=== PATIENT | male | born 1965 | race Caucasian/White ===

== ENCOUNTER 2016-07-09 21:45 | Emergency (ER) | payer SELFPAY ==
[2016-07-09] MEDS ORDERED: NORMAL SALINE 1000 ML 1,000 ML IV ONE (22:32)
--- NOTE | 2016-07-09 22:32 | ER Document Report ---
ED General - General Mode of Arrival: Ambulatory Information source: Patient TRAVEL OUTSIDE OF THE [place] IN LAST 30 DAYS: No - HPI Patient complains to provider of: Hypoglycemia Onset: Just prior to arrival Associated symptoms: Other - see HPI <ALEXX MCGRAW - Last Filed: 07/09/16 23:00> <ISMAELJG MATIAS - Last Filed: 07/10/16 06:56> - General Chief Complaint: ETOH Abuse Stated Complaint: LOW BLOOD SUGAR,ALCOHOL INTOXICATION,AMS Notes: 50 year old male with history of cardiac disease and diabetes presents to the ED via EMS after being found unresponsive by a friend earlier this evening. EMS reports the patient is hypoglycemic, smells of ETOH, and was altered when they arrived. Patient's friend states that the patient has been abusing Percocet the last few days and heroin 3 days ago. Patient was 1 month ago and the friend explains that he has been drinking excessively since this. EMS reports that the patient's last meal was last night. (ALEXX MCGRAW) Past Medical History - General Information source: Patient - Social History Smoking Status: Unknown if Ever Smoked Frequency of alcohol use: Heavy Drug Abuse: Heroin Family History: Reviewed & Not Pertinent <ALEXX MCGRAW - Last Filed: 07/09/16 23:00> Review of Systems - Review of Systems Constitutional: No symptoms reported EENT: No symptoms reported Cardiovascular: See HPI, Other - hypoglycemia Respiratory: No symptoms reported Gastrointestinal: No symptoms reported Genitourinary: No symptoms reported Male Genitourinary: No symptoms reported Musculoskeletal: No symptoms reported Skin: No symptoms reported Hematologic/Lymphatic: No symptoms reported Neurological/Psychological: See HPI, Lost consciousness -: Yes All other systems reviewed and negative <ALEXX MCGRAW - Last Filed: 07/09/16 23:00> Physical Exam - General General appearance: Other - uncooperative and intoxicated - HEENT Head: Normocephalic, Atraumatic Eyes: Normal Extraocular movements intact: Yes Pupils: PERRL - Respiratory Respiratory status: No respiratory distress Breath sounds: Normal - Cardiovascular Rhythm: Regular Heart sounds: Normal auscultation - Abdominal Inspection: Normal - Back Back: Normal - Extremities General upper extremity: Normal inspection, Normal ROM General lower extremity: Normal inspection, Normal ROM - Neurological Neuro grossly intact: Yes - Psychological Associated symptoms: Uncooperative - Skin Skin Temperature: Warm Skin Moisture: Dry Skin Color: Normal <MCGRAWALEXX PEÑA - Last Filed: 07/09/16 23:00> Course <ALEXX MCGRAW - Last Filed: 07/09/16 23:00> - Laboratory Result Diagrams: 07/09/16 23:25 07/09/16 23:25 <JG GUEVARA - Last Filed: 07/10/16 06:56> - Re-evaluation Re-evalutation: 07/09 Patient is a 50-year-old male who comes in intoxicated and hypoglycemic as he has been taking Xanax and drinking alcohol but not eating anything all day. Patient states that he had a recent of his grandfather and his left him apparently a month ago. Patient states that he does not want hurt himself or anyone also. He would like to go home. Promises that he will eat. Family is present who stated that they'll monitor the patient and watch him eat something. They do not feel that he is a danger to himself or anyone also this time. 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 Stable at time of discharge into the care of family. Please note, the patient needed to be restrained upon presentation as he was intoxicated, stumbling, and attempting to leave and walk. Recent orders were put in. Discontinued at time of discharge. (JG GUEVARA) - Vital Signs Vital signs: Temp Pulse Resp BP Pulse Ox 97.8 F 89 15 130/83 H 98 07/09/16 23:55 07/09/16 23:55 07/09/16 23:55 07/09/16 23:55 07/09/16 23:55 - Laboratory Laboratory results interpreted by me: 07/09/16 07/09/16 23:25 23:25 MCV 99 H MCH 35.5 H Plt Count 123 L AST 307 H ALT 257 H Salicylates < 1.0 L Acetaminophen < 10 L Serum Alcohol 344 H* Discharge <ALEXX MCGRAW - Last Filed: 07/09/16 23:00> <JG GUEVARA - Last Filed: 07/10/16 06:56> - Discharge Clinical Impression: Elevated LFTs, Hypoglycemia Alcohol intoxication Qualifiers: Complication of substance-induced condition: uncomplicated Qualified Code(s): F10.120 - Alcohol abuse with intoxication, uncomplicated Condition: Stable Disposition: HOME, SELF-CARE Instructions: Acute Alcohol Intoxication ([facility]), Hypoglycemia ([facility]) Additional Instructions: Please call your doctor in the morning. Please eat food and stop drinking alcohol excessively. Forms: Elevated Blood Pressure Scribe Attestation: 07/10/16 06:56 I personally performed the services described in the documentation, reviewed and edited the documentation which was dictated to the scribe in my presence, and it accurately records my words and actions. (JG GUEVARA) Scribe Documentation - Scribe Written by Nesha:: Nesha Duckworth, 07/09/2016 2330 acting as scribe for :: Ismael <ALEXX MCGRAW - Last Filed: 07/09/16 23:00>
[2016-07-09 23:46] LABS: ABSOLUTE MONOCYTES (AUTO) 0.8 10^3/uL (0.1-1.4); ABSOLUTE NEUT (AUTO) 4.3 10^3/uL (1.7-8.2); BASOPHILS % (AUTO) 0.4 % (0-2); EOSINOPHILS % (AUTO) 0.4 % (0-6); HEMATOCRIT 46.4 % (37.9-51.0); HEMOGLOBIN 16.6 g/dL (13.5-17.0); HGB HCT DIFFERENCE 3.4; LYMPHOCYTES % (AUTO) 27.7 % (13-45); MEAN CORPUSCULAR HEMOGLOBIN 35.5 pg (27.0-33.4); MEAN CORPUSCULAR HGB CONC 35.8 g/dL (32.0-36.0); MEAN CORPUSCULAR VOLUME 99 fl (80-97); MONOCYTES % (AUTO) 10.8 % (3-13); RED BLOOD COUNT 4.68 10^6/uL (4.35-5.55); RED CELL DISTRIBUTION WIDTH 12.9 % (11.5-14.0); SEGMENTED NEUTROPHILS % (AUTO) 60.7 % (42-78); WHITE BLOOD COUNT 7.1 10^3/uL (4.0-10.5)
[2016-07-09 23:52] LABS: ALANINE AMINOTRANSFERASE 257 U/L (21-72); ALBUMIN 4.4 g/dL (3.5-5.0); ALKALINE PHOSPHATASE 90 U/L (38-126); ANION GAP 14 (5-19); ASPARTATE AMINO TRANSFERASE 307 U/L (17-59); BILIRUBIN,DIRECT 0.2 mg/dL (0.0-0.4); BILIRUBIN,TOTAL 0.8 mg/dL (0.2-1.3); BLOOD UREA NITROGEN 7 mg/dL (7-20); CALCIUM 9.3 mg/dL (8.4-10.2); CARBON DIOXIDE 28 mmol/L (22-30); CHLORIDE 100 mmol/L (98-107); CREATININE RESULT 0.59 mg/dL (0.52-1.25); GLUCOSE 105 mg/dL (75-110); POTASSIUM 3.6 mmol/L (3.6-5.0); SODIUM 142.2 mmol/L (137-145); TOTAL PROTEIN 7.5 g/dL (6.3-8.2)
[2016-07-10 00:04] LABS: ALCOHOL 344 mg/dL (NONE DETECTED)
--- NOTE | 2016-07-10 00:15 | EKG REPORT ---
SEVERITY:- BORDERLINE ECG - SINUS RHYTHM LOW VOLTAGE IN FRONTAL LEADS BORDERLINE PROLONGED QT INTERVAL : Confirmed by: Bethanie Peters 10-Jul-2016 00:15:00
[2016-07-10 00:33] VITALS: BP 130/83
== END 2016-07-10 | disposition home or self-care (01) ==
LOC: ER 21:45
DX: F10.120 Alcohol abuse with intoxication, uncomplicated (principal); R79.89 Other specified abnormal findings of blood chemistry; E16.2 Hypoglycemia, unspecified; Z78.1 Physical restraint status
CPT/HCPCS: 36415; 80053; 80307; 82962; 85025; 93005; 93010; 99285